=== PATIENT | male | born 1945 | race Caucasian/White ===

== ENCOUNTER → 2017-01-05 | Outpatient (CLI) | payer MEDICARE, BC ==
[~2017-01-05] MED LIST: ASPIRIN E.C. 8181 MG PO; COLACE 100100 MG/CAP PO; MULTIPLE VITAMI1 CAP; NO HOME MEDICATIONS; VITAMIN C500 MG PO; XANAX 0.5MG0.5 MG PO
== END ==
LOC: SUN.DIA
DX: E11.9 Type 2 diabetes mellitus without complications (principal); Z71.3 Dietary counseling and surveillance; E78.5 Hyperlipidemia, unspecified

== ENCOUNTER → 2018-01-24 | Outpatient (CLI) | payer MEDICARE, BC | LOC: SUN.DIA 07-25 13:40 | DX: E11.9 Type 2 diabetes mellitus without complications (principal); E78.5 Hyperlipidemia, unspecified; I10 Essential (primary) hypertension; Z68.25 Body mass index [BMI] 25.0-25.9, adult; Z71.3 Dietary counseling and surveillance; Z87.891 Personal history of nicotine dependence ==

== ENCOUNTER → 2018-01-24 | Outpatient (CLI) | payer MEDICARE, BC | LOC: SUN.DIA 09:01 | DX: E11.9 Type 2 diabetes mellitus without complications (principal); E78.5 Hyperlipidemia, unspecified; I10 Essential (primary) hypertension; Z68.25 Body mass index [BMI] 25.0-25.9, adult; Z71.3 Dietary counseling and surveillance; Z87.891 Personal history of nicotine dependence | CPT/HCPCS: G0108 ==

== ENCOUNTER 2018-05-05 06:24 | Day surgery (SDC) | payer MEDICARE, BC ==
[~2018-05-05] VITALS: Ht 180.3 cm; Wt 78.1 kg
[~2018-05-05 06:24] MED LIST changes: -MULTIPLE VITAMI1 CAP; +MULTIPLE VITAMI1 CAP PO
[2018-05-05] MEDS ORDERED: ZANTAC 150MG T150 MG PO ×2 (06:42→06:43)
[2018-05-05] MEDS ORDERED: CRESTOR 10MG10 MG PO (06:44)
[2018-05-05 07:05] VITALS: BP 136/85; PULSE 67; TEMP 97.5
[2018-05-05 08:10] VITALS: BP 139/77; PULSE 63; TEMP 97.9
[2018-05-05 08:25] VITALS: BP 144/88; PULSE 60
[2018-05-05 08:40] VITALS: BP 137/72; PULSE 63
== END 2018-05-05 08:51 | disposition home or self-care (01) ==
LOC: SDCO 06:24
DX: Z12.11 Encounter for screening for malignant neoplasm of colon (principal); Z86.010 Personal history of colon polyps; K21.9 Gastro-esophageal reflux disease without esophagitis; I10 Essential (primary) hypertension; E11.9 Type 2 diabetes mellitus without complications; Z80.52 Family history of malignant neoplasm of bladder; Z79.899 Other long term (current) drug therapy; Z79.82 Long term (current) use of aspirin
CPT/HCPCS: 43235; G0105; OP; J2704; J7120

== ENCOUNTER 2019-09-16 09:01 | Emergency (ER) | payer MEDICARE, BC ==
[~2019-09-16] VITALS: Ht 180.3 cm; Wt 79.5 kg
[~2019-09-16 09:01] MED LIST changes: +CRESTOR 10MG10 MG PO; +ZANTAC 150MG T150 MG PO
[2019-09-16 09:06] VITALS: BP 132/80
[2019-09-16] MEDS ORDERED: PRINIVIL5 MG PO (09:21)
[2019-09-16 10:32] VITALS: PULSE 74; TEMP 98
== END 2019-09-16 10:32 | disposition home or self-care (01) ==
LOC: COL.ER 09:01
DX: K56.41 Fecal impaction (principal); Z79.82 Long term (current) use of aspirin

== ENCOUNTER 2020-08-18 07:36 | Emergency (ER) | payer MEDICARE, BC ==
[~2020-08-18] VITALS: Ht 180.3 cm; Wt 79.5 kg
[~2020-08-18 07:36] MED LIST changes: +PRINIVIL5 MG PO
[2020-08-18 11:09] VITALS: BP 129/93; PULSE 85; TEMP 98
== END 2020-08-18 08:30 | disposition home or self-care (01) ==
LOC: COL.ER 07:36
DX: D18.01 Hemangioma of skin and subcutaneous tissue (principal); I10 Essential (primary) hypertension; E78.5 Hyperlipidemia, unspecified; Z79.82 Long term (current) use of aspirin

== ENCOUNTER → 2020-08-27 | Outpatient (CLI) | payer MEDICARE, BC ==
[2020-08-27 07:05] VITALS: BP 159/81; PULSE 78; TEMP 96.6
== END ==
LOC: COL.ER 06:57
DX: Z48.02 Encounter for removal of sutures (principal)

== ENCOUNTER 2021-04-08 05:50 | Emergency (ER) | payer MEDICARE, BC ==
[~2021-04-08] VITALS: Ht 180.3 cm; Wt 84.1 kg
[2021-04-08 05:56] VITALS: TEMP 98.1
[2021-04-08] MEDS ORDERED: LIDODERM 5% PATC1 EA TP (08:05)
[2021-04-08 08:39] VITALS: BP 127/77; PULSE 77
== END 2021-04-08 08:40 | disposition home or self-care (01) ==
LOC: COL.ER 05:50
DX: S42.035A Nondisplaced fracture of lateral end of left clavicle, initial encounter for closed fracture (principal); S20.212A Contusion of left front wall of thorax, initial encounter; I10 Essential (primary) hypertension; K21.9 Gastro-esophageal reflux disease without esophagitis; Z87.891 Personal history of nicotine dependence; Z79.899 Other long term (current) drug therapy; W19.XXXA Unspecified fall, initial encounter; W22.8XXA Striking against or struck by other objects, initial encounter